=== PATIENT | male | born 1960 | race Caucasian/White ===

== ENCOUNTER 2021-10-31 12:01 | Emergency (ER) | payer MEDICARE, OTHER ==
[2021-10-31 12:52] LABS: #Eosinphils 0.2 10x3/uL (0.0-0.5); #Monocytes 0.3 10x3/uL (0.0-1.1); #Neutrophils 5.9 10x3/uL (1.5-8.4); %Basophils 0.1 % (0.0-2.0); %Eosinophils 2.5 % (0.0-6.0); %Lymphocytes 8.1 % (18.0-47.0); %Monocytes 4.7 % (0.0-10.0); %Neutrophils 83.9 % (40.0-75.0); Hemoglobin 9.5 g/dL (13.5-17.5); Mean Corpuscular HGB CONC 33.3 g/dL (32.0-36.0); Mean Corpuscular Hemoglobin 30.4 pg (27.0-33.0); Mean Corpuscular Volume 91.3 fl (81.2-95.1); Mean Platelet Volume 9.3 fl (7.4-10.4); Platelet Count 157 10x3/uL (150-450); RBC Distribution Width 13.5 % (11.5-14.5); Red Blood Cell (RBC) Count 3.12 10x6/uL (4.32-5.72); White Blood Cell (WBC) Count 7.1 10x3/uL (3.5-10.5)
[2021-10-31 13:04] LABS: ALT (SGPT) 12 U/L (8-55); AST (SGOT) 16 U/L (5-34); Albumin 3.4 g/dL (3.5-5.0); Alkaline Phosphatase 127 U/L (40-110); Anion Gap 24 mmol/L (10-20); BUN (Urea Nitrogen) 125 mg/dL (8.4-25.7); Bilirubin, Total 0.4 mg/dL (0.2-1.2); Calc. Creatinine Clearance 0 mL/min (70-130); Calcium 7.7 mg/dL (7.8-10.44); Carbon Dioxide 19 mmol/L (22-29); Chloride 95 mmol/L (98-107); Globulin 3.2 g/dL (2.4-3.5); Glucose 213 mg/dL (70-105); Potassium 4.4 mmol/L (3.5-5.1); Protein, Total 6.6 g/dL (6.0-8.3); Sodium 134 mmol/L (136-145)
[2021-10-31] MEDS ORDERED: hydrALAZINE 20 MG/ML VIAL ONE (13:34)
[2021-10-31] MEDS ORDERED: Nitroglycerin 2% Ointment 1 INCH/1 GM Packet ONE (13:34)
[2021-10-31] MEDS ORDERED: Heparin 10,000 UNITS/ 10 ML VIAL SLOW IVP PRN (16:49)
[2021-10-31] MEDS ORDERED: EPOETIN ALFA-EPBX (ESRD) 3,000 UNIT/ML VIAL IVP PRN (16:52)
== END 2021-10-31 21:15 | disposition home or self-care (01) ==
LOC: CSHERS 12:01
DX: N19 Unspecified kidney failure (principal); E87.70 Fluid overload, unspecified; E11.9 Type 2 diabetes mellitus without complications; E03.9 Hypothyroidism, unspecified; I10 Essential (primary) hypertension
CPT/HCPCS: 71045; 80053; 83880; 85025; 93005; 96374; 99285; Q5105; 90935; G0257; J0360; J1644

== ENCOUNTER 2022-02-28 08:23 | Observation (INO) | payer MEDICARE, MEDICAID ==
[2022-02-28 09:20] LABS: #Eosinphils 0.1 10x3/uL (0.0-0.5); #Monocytes 0.5 10x3/uL (0.0-1.1); #Neutrophils 9.4 10x3/uL (1.5-8.4); %Basophils 0.3 % (0.0-2.0); %Eosinophils 1.2 % (0.0-6.0); %Lymphocytes 7.8 % (18.0-47.0); %Monocytes 4.8 % (0.0-10.0); %Neutrophils 84.9 % (40.0-75.0); Hemoglobin 10.6 g/dL (13.5-17.5); Mean Corpuscular HGB CONC 31.8 g/dL (32.0-36.0); Mean Corpuscular Hemoglobin 30.4 pg (27.0-33.0); Mean Corpuscular Volume 95.4 fl (81.2-95.1); Mean Platelet Volume 9.3 fl (7.4-10.4); Platelet Count 180 10x3/uL (150-450); RBC Distribution Width 13.9 % (11.5-14.5); Red Blood Cell (RBC) Count 3.49 10x6/uL (4.32-5.72); White Blood Cell (WBC) Count 11.1 10x3/uL (3.5-10.5)
[2022-02-28 09:33] LABS: ALT (SGPT) 24 U/L (8-55); AST (SGOT) 18 U/L (5-34); Albumin 3.5 g/dL (3.5-5.0); Alkaline Phosphatase 148 U/L (40-110); Anion Gap 24 mmol/L (10-20); BUN (Urea Nitrogen) 75 mg/dL (8.4-25.7); Bilirubin, Total 0.3 mg/dL (0.2-1.2); Calc. Creatinine Clearance 0 mL/min (70-130); Carbon Dioxide 19 mmol/L (22-29); Chloride 93 mmol/L (98-107); Globulin 2.5 g/dL (2.4-3.5); Glucose 238 mg/dL (70-105); Potassium 5.1 mmol/L (3.5-5.1); Sodium 131 mmol/L (136-145)
[2022-02-28 09:52] LABS: CKMB 2.1 ng/mL (0-6.6)
[2022-02-28] MEDS ORDERED: Docusate 100 MG CAP PO PRN (10:59)
[2022-02-28] MEDS ORDERED: Promethazine 25 MG TAB PO PRN (10:59)
[2022-02-28] MEDS ORDERED: NIFEdipine XL 60 MG TAB PO SCH ×2 (11:00)
[2022-02-28] MEDS ORDERED: Dextrose 5% in Water 1,000 ML IV PRN (11:03)
[2022-02-28] MEDS ORDERED: Ondansetron PF 4 MG/2 ML Vial IVP PRN (11:03)
[2022-02-28] MEDS ORDERED: HumaLOG 300 UNITS/3 ML VIAL SC PRN (11:03)
[2022-02-28] MEDS ORDERED: Acetaminophen 325 MG TAB PO PRN (11:03)
[2022-02-28] MEDS ORDERED: Dextrose 50% Abboject 50 ML SYRINGE SLOW IVP PRN (11:03)
[2022-02-28] MEDS ORDERED: Heparin 10,000 UNITS/ 10 ML VIAL FS PRN (12:12)
[2022-02-28] MEDS ORDERED: EPOETIN ALFA-EPBX (ESRD) 3,000 UNIT/ML VIAL IVP PRN (12:13)
[2022-02-28 12:49] LABS: Troponin I 0.051 ng/mL (< 0.028)
[2022-02-28 15:15] LABS: Hep B Surf Ag Non-Reactive S/CO (NonReactive)
[2022-02-28 15:29] LABS: HBSAg Index 0.17 S/CO (0-0.99)
[2022-02-28 17:38] LABS: Troponin I 0.049 ng/mL (< 0.028)
[2022-02-28 17:42] VITALS: BMI 30.9
[2022-02-28] MEDS: Heparin 5,000 UNITS/ML VIAL SC SCH ×2 (18:00→21:29)
[2022-02-28] MEDS: cloNIDine 0.1 MG TAB PO SCH ×2 (18:00→21:27)
[2022-02-28] MEDS ORDERED: Zolpidem Tartrate 5 MG TAB PO SCH (21:00)
[2022-02-28] MEDS ORDERED: hydrALAZINE 25 MG TAB PO PRN (22:58)
[2022-02-28 23:44] LABS: Troponin I 0.048 ng/mL (< 0.028)
[2022-03-01 04:07] LABS: Anion Gap 16 mmol/L (10-20); BUN (Urea Nitrogen) 29 mg/dL (8.4-25.7); Calc. Creatinine Clearance 17 mL/min (70-130); Calcium 8.9 mg/dL (7.8-10.44); Carbon Dioxide 27 mmol/L (22-29); Chloride 96 mmol/L (98-107); Glucose 99 mg/dL (70-105); Potassium 3.7 mmol/L (3.5-5.1); Sodium 135 mmol/L (136-145)
[2022-03-01 04:08] LABS: #Eosinphils 0.2 10x3/uL (0.0-0.5); #Monocytes 0.5 10x3/uL (0.0-1.1); #Neutrophils 6.5 10x3/uL (1.5-8.4); %Basophils 0.4 % (0.0-2.0); %Eosinophils 2.2 % (0.0-6.0); %Lymphocytes 13.8 % (18.0-47.0); %Monocytes 5.7 % (0.0-10.0); %Neutrophils 76.8 % (40.0-75.0); Mean Corpuscular HGB CONC 33.9 g/dL (32.0-36.0); Mean Corpuscular Hemoglobin 30.9 pg (27.0-33.0); Mean Platelet Volume 9.3 fl (7.4-10.4); Platelet Count 188 10x3/uL (150-450); RBC Distribution Width 14.1 % (11.5-14.5); Red Blood Cell (RBC) Count 3.24 10x6/uL (4.32-5.72); White Blood Cell (WBC) Count 8.5 10x3/uL (3.5-10.5)
[2022-03-01] MEDS ORDERED: Lantus 1000 UNITS/10 ML VIAL SC SCH (09:00)
[2022-03-01] MEDS ORDERED: Fluticasone Propionate Nasal Spray 16 gm Bottle NASAL SCH (09:00)
[2022-03-01] MEDS ORDERED: Loratadine 10 MG TAB PO SCH (09:00)
[2022-03-01] MEDS ORDERED: Minoxidil 2.5 MG TAB PO SCH (09:00)
[2022-03-01] MEDS: cloNIDine 0.1 MG TAB PO SCH ×2 (11:09→17:03)
[2022-03-01] MEDS: Heparin 5,000 UNITS/ML VIAL SC SCH ×2 (11:09→17:03)
[2022-03-01 13:18] VITALS: TEMP 96.3
[2022-03-01 15:59] LABS: SARS-CoV-2 PCR by NAA Not Detected (NotDetected)
[2022-03-01 17:04] VITALS: BP 174/74
== END 2022-03-01 17:00 | disposition home or self-care (01) ==
LOC: CSHERS 08:23 → INTOOBSV 11:03 → CSHTELE 11:03 → UNDOADMIN 17:17
PROVIDERS: ADMIT Internal Medicine; ATTEND Internal Medicine
DX: R00.1 Bradycardia, unspecified (principal); I12.0 Hypertensive chronic kidney disease with stage 5 chronic kidney disease or end stage renal disease; N18.6 End stage renal disease; E11.22 Type 2 diabetes mellitus with diabetic chronic kidney disease; Z79.899 Other long term (current) drug therapy; Z79.4 Long term (current) use of insulin; Z79.82 Long term (current) use of aspirin; E03.9 Hypothyroidism, unspecified; R77.8 Other specified abnormalities of plasma proteins; Z20.822 Contact with and (suspected) exposure to COVID-19
CPT/HCPCS: 71045; 80048; 80053; 82553; 82962 ×2; 84484 ×2; 85025 ×2; 87340; 93005; 93306; 99285; G0378 ×3; Q5105; U0003; U0005; 36415; 36416; 90935; G0257; J1644; J1815

== ENCOUNTER 2022-05-19 07:32 | Emergency (ER) | payer MEDICARE, OTHER ==
[2022-05-19] MEDS ORDERED: Acetaminophen 500 MG TAB ONE (08:17)
[2022-05-19] MEDS ORDERED: traMADol HCl 50 MG TAB ONE (08:18)
== END 2022-05-19 09:34 | disposition home or self-care (01) ==
LOC: CSHERS 07:32
DX: S70.01XA Contusion of right hip, initial encounter (principal); E03.9 Hypothyroidism, unspecified; I12.0 Hypertensive chronic kidney disease with stage 5 chronic kidney disease or end stage renal disease; N18.6 End stage renal disease; E11.22 Type 2 diabetes mellitus with diabetic chronic kidney disease; Z99.2 Dependence on renal dialysis; W19.XXXA Unspecified fall, initial encounter
CPT/HCPCS: 72170

== ENCOUNTER 2022-10-19 09:05 | Inpatient (IN) | payer MEDICARE, OTHER ==
[2022-10-19] MEDS ORDERED: Prochlorperazine 10 MG/2 ML VIAL ONE ×2 (09:29→10:13)
[2022-10-19 09:39] LABS: #Eosinphils 0.3 10x3/uL (0.0-0.5); #Monocytes 0.8 10x3/uL (0.0-1.1); #Neutrophils 11.2 10x3/uL (1.5-8.4); %Basophils 0.3 % (0.0-2.0); %Eosinophils 2.1 % (0.0-6.0); %Lymphocytes 9.1 % (18.0-47.0); %Monocytes 5.5 % (0.0-10.0); %Neutrophils 82.6 % (40.0-75.0); Hemoglobin 10.6 g/dL (13.5-17.5); Mean Corpuscular HGB CONC 33.5 g/dL (32.0-36.0); Mean Corpuscular Hemoglobin 30.5 pg (27.0-33.0); Mean Corpuscular Volume 91.1 fl (81.2-95.1); Mean Platelet Volume 9.4 fl (7.4-10.4); Platelet Count 223 10x3/uL (150-450); RBC Distribution Width 13.2 % (11.5-14.5); Red Blood Cell (RBC) Count 3.47 10x6/uL (4.32-5.72); White Blood Cell (WBC) Count 13.6 10x3/uL (3.5-10.5)
[2022-10-19 09:52] LABS: ALT (SGPT) 16 U/L (8-55); AST (SGOT) 20 U/L (5-34); Albumin 3.8 g/dL (3.5-5.0); Alkaline Phosphatase 135 U/L (40-110); Anion Gap 24 mmol/L (10-20); BUN (Urea Nitrogen) 57 mg/dL (8.4-25.7); Bilirubin, Total 0.4 mg/dL (0.2-1.2); Calc. Creatinine Clearance 0 mL/min (70-130); Calcium 8.7 mg/dL (7.8-10.44); Carbon Dioxide 18 mmol/L (22-29); Chloride 92 mmol/L (98-107); Estimated GFR 6; Globulin 2.7 g/dL (2.4-3.5); Glucose 226 mg/dL (70-105); Magnesium 2.2 mg/dL (1.6-2.6); Potassium 4.8 mmol/L (3.5-5.1); Protein, Total 6.5 g/dL (6.0-8.3); Sodium 129 mmol/L (136-145)
[2022-10-19] MEDS ORDERED: Calcium Gluconate 13.8 MEQ, Admixture Fee 1 EACH in Sodium Chloride 0.9% 100 ML IVPB SCH (10:00)
[2022-10-19 10:13] LABS: CKMB 3.2 ng/mL (0-6.6)
[2022-10-19] MEDS ORDERED: Aspirin Chewable 81 MG TAB ONE (10:13)
[2022-10-19 10:14] LABS: SARS-CoV-2 NAA Rapid Test Not Detected (NotDetected)
[2022-10-19] MEDS ORDERED: Vancomycin 1 GM VIAL ONE (10:14)
[2022-10-19] MEDS ORDERED: Cefepime 2 GM VIAL ONE (10:14)
[2022-10-19] MEDS ORDERED: NOREPINEPHRINE 8 MG/250 ML-D5W 250 ML ONE (10:44)
[2022-10-19 10:58] LABS: INR-International Normal Ratio 0.9; PTT 28.8 sec (22.0-33.0); Prothrombin Time 10.3 sec (9.5-12.1)
[2022-10-19] MEDS ORDERED: Ondansetron PF 4 MG/2 ML Vial IVP PRN (11:25)
[2022-10-19] MEDS ORDERED: HYDROcodone/Acetaminophen 5/325 mg Tablet PO PRN (11:25)
[2022-10-19] MEDS ORDERED: Dextrose 5% in Water 1,000 ML IV PRN (11:28)
[2022-10-19] MEDS ORDERED: Dextrose 50% Abboject 50 ML SYRINGE SLOW IVP PRN (11:28)
[2022-10-19] MEDS ORDERED: Vancomycin Sliding Scale IVPB PRN (11:38)
[2022-10-19 12:47] LABS: Lactic Acid 2.1 mmol/L (0.5-2.2)
[2022-10-19 12:58] LABS: Troponin I 0.529 ng/mL (< 0.028)
[2022-10-19 13:05] LABS: ALV-art Gradient 76.235 mmHg (0-20); Actual Bicarbonate (HCO3a) 22.1 mEq/L (22-28); Base Excess (BEa) -3.2 mEq/L (-2.0 to +3.0); CO2 Tension 40.9 mmHg (35.0-45.0); Calcium, Ionized (arterial) 1.08 mmol/L (1.12-1.30); Carboxyhemoglobin (COHb) 0.1 gm% (0.0-3.0); Hemoglobin (Hb) 10.3 g/dL (14.0-18.0); O2 Tension (PaO2), arterial 100.8 mmHg (> 80.0); Puncture Site RRA; pH, Arterial 7.35 (7.35-7.45)
[2022-10-19 15:51] LABS: Troponin I 1.062 ng/mL (< 0.028)
[2022-10-19 15:59] LABS: HBSAg Index 0.18 S/CO (0-0.99); Hep B Surf Ag Non-Reactive S/CO (NonReactive)
[2022-10-19] MEDS: Metoclopramide HCl 10 MG/2 ML VIAL IVP SCH ×3 (16:41→21:58)
[2022-10-19] MEDS: Heparin 5,000 UNITS/ML VIAL SC SCH ×2 (17:05→21:58)
[2022-10-19] MEDS: HumaLOG 300 UNITS/3 ML VIAL SC PRN (17:53)
[2022-10-19] MEDS ORDERED: Vancomycin 1 GM in Premix Bag 1 BAG IVPB SCH (21:00)
[2022-10-19] MEDS: Heparin 10,000 UNITS/ 10 ML VIAL FS PRN (22:10)
[2022-10-19 22:44] LABS: Hep B Core Total Ab Non-Reactive (NonReactive); Hep B Core Total Index 0.07 S/CO (0-0.79); Hep C IgG Ab Non-Reactive (NonReactive); Hep C Index 0.14 S/CO (0-0.79)
[2022-10-19 23:31] LABS: HBSAB Concentration 9.11 mIU/mL
[2022-10-20] MEDS ORDERED: Vancomycin HCl 1 GM in Sodium Chloride 0.9% 250 ML 250 ML IVPB SCH (01:00)
[2022-10-20] MEDS: Metoprolol Tartrate 25 MG TAB PO SCH ×3 (01:25→20:34)
[2022-10-20 04:26] LABS: #Eosinphils 0.1 10x3/uL (0.0-0.5); #Monocytes 0.5 10x3/uL (0.0-1.1); #Neutrophils 6.3 10x3/uL (1.5-8.4); %Basophils 0.5 % (0.0-2.0); %Eosinophils 1.7 % (0.0-6.0); %Lymphocytes 8.9 % (18.0-47.0); %Monocytes 6.2 % (0.0-10.0); %Neutrophils 82.2 % (40.0-75.0); Hemoglobin 9.2 g/dL (13.5-17.5); Mean Corpuscular HGB CONC 33.8 g/dL (32.0-36.0); Mean Corpuscular Hemoglobin 30.6 pg (27.0-33.0); Mean Corpuscular Volume 90.4 fl (81.2-95.1); Mean Platelet Volume 9.3 fl (7.4-10.4); Platelet Count 182 10x3/uL (150-450); RBC Distribution Width 13.2 % (11.5-14.5); Red Blood Cell (RBC) Count 3.01 10x6/uL (4.32-5.72); White Blood Cell (WBC) Count 7.7 10x3/uL (3.5-10.5)
[2022-10-20 04:52] LABS: Anion Gap 13 mmol/L (10-20); BUN (Urea Nitrogen) 19 mg/dL (8.4-25.7); Calc. Creatinine Clearance 25 mL/min (70-130); Calcium 8.5 mg/dL (7.8-10.44); Carbon Dioxide 28 mmol/L (22-29); Chloride 99 mmol/L (98-107); Estimated GFR 15; Glucose 83 mg/dL (70-105); Potassium 3.6 mmol/L (3.5-5.1); Sodium 136 mmol/L (136-145)
[2022-10-20] MEDS: Aspirin 81 mg Enteric Coated Tablet PO SCH (07:58)
[2022-10-20] MEDS: Metoclopramide HCl 10 MG/2 ML VIAL IVP SCH ×4 (07:58→20:38)
[2022-10-20] MEDS: Heparin 5,000 UNITS/ML VIAL SC SCH ×3 (07:58→20:33)
[2022-10-20] MEDS ORDERED: Cefepime 0.5 GM, Admixture Fee 1 EACH in Sodium Chloride 0.9% 100 ML IVPB SCH (10:00)
[2022-10-20 13:01] LABS: Hemoglobin A1c 7.2 % (4.0-6.0)
[2022-10-20] MEDS ORDERED: Calcium Carbonate 500 MG ChewTAB PO PRN (14:54)
[2022-10-20] MEDS ORDERED: Artificial Tear Sol 15 ML BOT EA EYE PRN (14:54)
[2022-10-20] MEDS: Sevelamer Carbonate 800 MG TAB PO SCH (16:57)
[2022-10-20] MEDS: Lanthanum Carbonate 500 mg Chewable Tablet PO SCH (17:06)
[2022-10-20] MEDS: Gabapentin 300 MG CAP PO SCH (20:34)
[2022-10-20] MEDS: Losartan Potassium 50 MG TAB PO SCH (20:34)
[2022-10-20] MEDS: HumaLOG 300 UNITS/3 ML VIAL SC PRN (20:34)
[2022-10-20] MEDS: Lantus 1000 UNITS/10 ML VIAL SC SCH (20:37)
[2022-10-21 05:13] LABS: ALT (SGPT) 15 U/L (8-55); AST (SGOT) 19 U/L (5-34); Albumin 3.4 g/dL (3.5-5.0); Alkaline Phosphatase 96 U/L (40-110); Anion Gap 16 mmol/L (10-20); BUN (Urea Nitrogen) 30 mg/dL (8.4-25.7); Bilirubin, Total 0.5 mg/dL (0.2-1.2); Calc. Creatinine Clearance 17 mL/min (70-130); Calcium 8.4 mg/dL (7.8-10.44); Carbon Dioxide 25 mmol/L (22-29); Chloride 100 mmol/L (98-107); Estimated GFR 9; Globulin 2.6 g/dL (2.4-3.5); Glucose 80 mg/dL (70-105); Potassium 4.4 mmol/L (3.5-5.1); Sodium 137 mmol/L (136-145)
[2022-10-21 05:30] LABS: #Eosinphils 0.2 10x3/uL (0.0-0.5); #Monocytes 0.5 10x3/uL (0.0-1.1); #Neutrophils 6.3 10x3/uL (1.5-8.4); %Basophils 0.3 % (0.0-2.0); %Eosinophils 1.9 % (0.0-6.0); %Lymphocytes 9.7 % (18.0-47.0); %Monocytes 5.8 % (0.0-10.0); %Neutrophils 82.2 % (40.0-75.0); Hemoglobin 8.8 g/dL (13.5-17.5); Mean Corpuscular HGB CONC 33.2 g/dL (32.0-36.0); Mean Corpuscular Hemoglobin 30.6 pg (27.0-33.0); Mean Platelet Volume 9.6 fl (7.4-10.4); Platelet Count 179 10x3/uL (150-450); RBC Distribution Width 13.4 % (11.5-14.5); Red Blood Cell (RBC) Count 2.88 10x6/uL (4.32-5.72); White Blood Cell (WBC) Count 7.7 10x3/uL (3.5-10.5)
[2022-10-21] MEDS: Loratadine 10 MG TAB PO SCH (08:09)
[2022-10-21] MEDS: Losartan Potassium 50 MG TAB PO SCH ×2 (08:09→21:04)
[2022-10-21] MEDS: Metoprolol Tartrate 25 MG TAB PO SCH ×2 (08:09→21:07)
[2022-10-21] MEDS: Sertraline 100 MG TAB PO SCH (08:09)
[2022-10-21] MEDS: Aspirin 81 mg Enteric Coated Tablet PO SCH (08:10)
[2022-10-21] MEDS: Metoclopramide HCl 10 MG/2 ML VIAL IVP SCH ×4 (08:10→21:07)
[2022-10-21] MEDS: Sevelamer Carbonate 800 MG TAB PO SCH ×3 (08:10→17:03)
[2022-10-21 08:25] LABS: Vancomycin, Random 18.5 ug/mL (See Comment)
[2022-10-21] MEDS: Lantus 1000 UNITS/10 ML VIAL SC SCH ×2 (09:06→21:07)
[2022-10-21] MEDS: Heparin 5,000 UNITS/ML VIAL SC SCH ×3 (09:06→21:06)
[2022-10-21] MEDS: Lanthanum Carbonate 500 mg Chewable Tablet PO SCH ×3 (09:12→17:03)
[2022-10-21] MEDS: Folic Acid/Vit B Comp W-C PO SCH (09:13)
[2022-10-21] MEDS ORDERED: Cefepime 0.5 GM, Admixture Fee 1 EACH in Sodium Chloride 0.9% 100 ML IVPB SCH (15:00)
[2022-10-21] MEDS ORDERED: Vancomycin HCl 500 MG in Sodium Chloride 0.9% 100 ML IVPB SCH (17:00)
[2022-10-21] MEDS: Gabapentin 300 MG CAP PO SCH (21:04)
[2022-10-21] MEDS: HumaLOG 300 UNITS/3 ML VIAL SC PRN (21:05)
[2022-10-22 04:28] LABS: #Eosinphils 0.2 10x3/uL (0.0-0.5); #Monocytes 0.5 10x3/uL (0.0-1.1); #Neutrophils 4.9 10x3/uL (1.5-8.4); %Basophils 0.5 % (0.0-2.0); %Eosinophils 2.9 % (0.0-6.0); %Lymphocytes 13.8 % (18.0-47.0); %Monocytes 7.1 % (0.0-10.0); %Neutrophils 75.2 % (40.0-75.0); Hemoglobin 8.4 g/dL (13.5-17.5); Mean Corpuscular HGB CONC 32.8 g/dL (32.0-36.0); Mean Corpuscular Hemoglobin 29.9 pg (27.0-33.0); Mean Corpuscular Volume 91.1 fl (81.2-95.1); Mean Platelet Volume 9.9 fl (7.4-10.4); Platelet Count 176 10x3/uL (150-450); RBC Distribution Width 13.2 % (11.5-14.5); Red Blood Cell (RBC) Count 2.81 10x6/uL (4.32-5.72); White Blood Cell (WBC) Count 6.5 10x3/uL (3.5-10.5)
[2022-10-22 04:41] LABS: Anion Gap 15 mmol/L (10-20); BUN (Urea Nitrogen) 39 mg/dL (8.4-25.7); Calc. Creatinine Clearance 13 mL/min (70-130); Calcium 8.4 mg/dL (7.8-10.44); Carbon Dioxide 23 mmol/L (22-29); Chloride 99 mmol/L (98-107); Estimated GFR 7; Glucose 128 mg/dL (70-105); Potassium 4.3 mmol/L (3.5-5.1); Sodium 133 mmol/L (136-145)
[2022-10-22] MEDS ORDERED: Iron Sucrose Complex 200 MG in Sodium Chloride 0.9% 100 ML IVPB SCH (07:00)
[2022-10-22 07:39] LABS: Vancomycin, Random 17.2 ug/mL (See Comment)
[2022-10-22] MEDS: Metoclopramide HCl 10 MG/2 ML VIAL IVP SCH (07:46)
[2022-10-22] MEDS ORDERED: Minoxidil 10 MG TAB PO SCH (09:00)
[2022-10-22] MEDS ORDERED: Iron, Sodium Ferric Gluconate 250 MG in Sodium Chloride 0.9% 250 ML 250 ML IVPB SCH (09:00)
[2022-10-22] MEDS ORDERED: EPOETIN ALFA-EPBX (ESRD) 10,000 UNIT/ML VIAL SC SCH (09:00)
[2022-10-22] MEDS ORDERED: Minoxidil 2.5 MG TAB PO SCH (09:00)
[2022-10-22] MEDS: Sevelamer Carbonate 800 MG TAB PO SCH ×3 (09:26→17:33)
[2022-10-22] MEDS: Folic Acid/Vit B Comp W-C PO SCH (09:26)
[2022-10-22] MEDS: Lanthanum Carbonate 500 mg Chewable Tablet PO SCH ×3 (09:26→17:33)
[2022-10-22] MEDS: Metoprolol Tartrate 25 MG TAB PO SCH ×2 (09:27→22:17)
[2022-10-22] MEDS: Sertraline 100 MG TAB PO SCH (09:27)
[2022-10-22] MEDS: Loratadine 10 MG TAB PO SCH (09:27)
[2022-10-22] MEDS: Losartan Potassium 50 MG TAB PO SCH ×2 (09:27→22:17)
[2022-10-22] MEDS: Aspirin 81 mg Enteric Coated Tablet PO SCH (09:27)
[2022-10-22] MEDS: Saccharomyces boulardii 250 MG CAP PO SCH (09:29)
[2022-10-22] MEDS ORDERED: Amoxicillin/Potassium Clav 500 MG TAB PO SCH ×2 (10:00→15:00)
[2022-10-22] MEDS: Lantus 1000 UNITS/10 ML VIAL SC SCH (17:34)
[2022-10-22] MEDS: Heparin 5,000 UNITS/ML VIAL SC SCH (17:34)
[2022-10-22] MEDS: Gabapentin 300 MG CAP PO SCH (22:16)
[2022-10-23 05:59] LABS: #Eosinphils 0.2 10x3/uL (0.0-0.5); #Monocytes 0.5 10x3/uL (0.0-1.1); #Neutrophils 6.5 10x3/uL (1.5-8.4); %Basophils 0.3 % (0.0-2.0); %Eosinophils 2.4 % (0.0-6.0); %Lymphocytes 7.9 % (18.0-47.0); %Monocytes 5.8 % (0.0-10.0); %Neutrophils 83.2 % (40.0-75.0); Hemoglobin 9.5 g/dL (13.5-17.5); Mean Corpuscular HGB CONC 33.6 g/dL (32.0-36.0); Mean Corpuscular Hemoglobin 30.4 pg (27.0-33.0); Mean Corpuscular Volume 90.7 fl (81.2-95.1); Mean Platelet Volume 9.9 fl (7.4-10.4); Platelet Count 181 10x3/uL (150-450); RBC Distribution Width 13.2 % (11.5-14.5); Red Blood Cell (RBC) Count 3.12 10x6/uL (4.32-5.72); White Blood Cell (WBC) Count 7.8 10x3/uL (3.5-10.5)
[2022-10-23 06:05] LABS: Anion Gap 19 mmol/L (10-20); BUN (Urea Nitrogen) 50 mg/dL (8.4-25.7); Calc. Creatinine Clearance 11 mL/min (70-130); Calcium 8.4 mg/dL (7.8-10.44); Carbon Dioxide 20 mmol/L (22-29); Chloride 99 mmol/L (98-107); Estimated GFR 5; Glucose 133 mg/dL (70-105); Potassium 5.4 mmol/L (3.5-5.1); Sodium 133 mmol/L (136-145)
[2022-10-23] MEDS: Sertraline 100 MG TAB PO SCH (08:48)
[2022-10-23] MEDS: Sevelamer Carbonate 800 MG TAB PO SCH ×3 (08:48→17:12)
[2022-10-23] MEDS: Metoprolol Tartrate 25 MG TAB PO SCH ×2 (08:48→20:13)
[2022-10-23] MEDS: Aspirin 81 mg Enteric Coated Tablet PO SCH (08:48)
[2022-10-23] MEDS: Losartan Potassium 50 MG TAB PO SCH (08:48)
[2022-10-23] MEDS: Saccharomyces boulardii 250 MG CAP PO SCH (08:49)
[2022-10-23] MEDS: Lanthanum Carbonate 500 mg Chewable Tablet PO SCH ×3 (08:49→17:12)
[2022-10-23] MEDS: Loratadine 10 MG TAB PO SCH (08:49)
[2022-10-23] MEDS: Folic Acid/Vit B Comp W-C PO SCH (08:49)
[2022-10-23] MEDS ORDERED: Minoxidil 10 MG TAB PO SCH (09:00)
[2022-10-23] MEDS ORDERED: Minoxidil 2.5 MG TAB PO SCH (09:00)
[2022-10-23] MEDS ORDERED: Amoxicillin/Potassium Clav 500 MG TAB PO SCH ×2 (09:00→15:00)
[2022-10-23] MEDS ORDERED: Dextrose 50% Abboject 50 ML SYRINGE SLOW IVP STA (09:00)
[2022-10-23] MEDS ORDERED: Insulin Regular 300 UNITS/3 ML VIAL IVP SCH (09:15)
[2022-10-23] MEDS ORDERED: LOKELMA 10 GM PACKET PO STA (11:33)
[2022-10-23 15:04] LABS: Anion Gap 24 mmol/L (10-20); BUN (Urea Nitrogen) 55 mg/dL (8.4-25.7); Calc. Creatinine Clearance 10 mL/min (70-130); Calcium 8.8 mg/dL (7.8-10.44); Carbon Dioxide 17 mmol/L (22-29); Chloride 97 mmol/L (98-107); Estimated GFR 5; Glucose 202 mg/dL (70-105); Potassium 5.2 mmol/L (3.5-5.1); Sodium 133 mmol/L (136-145)
[2022-10-23] MEDS: Gabapentin 300 MG CAP PO SCH (20:13)
[2022-10-24 05:52] LABS: #Eosinphils 0.1 10x3/uL (0.0-0.5); #Monocytes 0.5 10x3/uL (0.0-1.1); #Neutrophils 6.1 10x3/uL (1.5-8.4); %Basophils 0.4 % (0.0-2.0); %Eosinophils 1.9 % (0.0-6.0); %Lymphocytes 10.7 % (18.0-47.0); %Monocytes 6.2 % (0.0-10.0); %Neutrophils 80.4 % (40.0-75.0); Hemoglobin 8.8 g/dL (13.5-17.5); Mean Corpuscular HGB CONC 33.6 g/dL (32.0-36.0); Mean Corpuscular Hemoglobin 30.8 pg (27.0-33.0); Mean Corpuscular Volume 91.6 fl (81.2-95.1); Platelet Count 178 10x3/uL (150-450); RBC Distribution Width 13.4 % (11.5-14.5); Red Blood Cell (RBC) Count 2.86 10x6/uL (4.32-5.72); White Blood Cell (WBC) Count 7.5 10x3/uL (3.5-10.5)
[2022-10-24 06:39] LABS: Anion Gap 23 mmol/L (10-20); BUN (Urea Nitrogen) 62 mg/dL (8.4-25.7); Calc. Creatinine Clearance 9 mL/min (70-130); Calcium 8.5 mg/dL (7.8-10.44); Carbon Dioxide 20 mmol/L (23-31); Chloride 99 mmol/L (98-107); Estimated GFR 4; Glucose 122 mg/dL (80-115); Potassium 4.9 mmol/L (3.5-5.1); Sodium 137 mmol/L (136-145)
[2022-10-24] MEDS ORDERED: EPINEPHrine 1 MG/ML AMP ONE (08:00)
[2022-10-24] MEDS ORDERED: Bupivacaine 0.25% HCL 30 ML VIAL ONE (08:00)
[2022-10-24] MEDS: Loratadine 10 MG TAB PO SCH (08:46)
[2022-10-24] MEDS: Sevelamer Carbonate 800 MG TAB PO SCH ×3 (08:46→17:25)
[2022-10-24] MEDS: Aspirin 81 mg Enteric Coated Tablet PO SCH (08:46)
[2022-10-24] MEDS: Lanthanum Carbonate 500 mg Chewable Tablet PO SCH ×3 (08:46→17:25)
[2022-10-24] MEDS: Folic Acid/Vit B Comp W-C PO SCH (08:46)
[2022-10-24] MEDS: Saccharomyces boulardii 250 MG CAP PO SCH (08:46)
[2022-10-24] MEDS: Sertraline 100 MG TAB PO SCH (08:55)
[2022-10-24] MEDS: Metoprolol Tartrate 25 MG TAB PO SCH ×2 (08:55→21:32)
[2022-10-24] MEDS ORDERED: PROPOFOL 20 ML ONE (10:12)
[2022-10-24] MEDS ORDERED: Fentanyl 100 MCG/2 ML VIAL ONE (10:12)
[2022-10-24] MEDS ORDERED: Midazolam HCl 2 mg/2 ml Vial ONE (10:12)
[2022-10-24] MEDS ORDERED: Lidocaine 1% PF 5 ML VIAL ONE (10:13)
[2022-10-24] MEDS ORDERED: Glycopyrrolate 0.2 MG/ML 5 ML SYRINGE ONE (10:13)
[2022-10-24] MEDS ORDERED: Ondansetron PF 4 MG/2 ML Vial ONE (10:13)
[2022-10-24] MEDS ORDERED: ePHEDrine Sulfate 50 MG/10 ML VIAL ONE (11:24)
[2022-10-24] MEDS ORDERED: PHENYLEPHRINE-NS 100 MCG/ML 10 ML SYRINGE ONE (11:26)
[2022-10-24] MEDS ORDERED: EPINEPHrine 1 MG/10 ML Abboject SYRINGE ONE (11:32)
[2022-10-24] MEDS ORDERED: Propofol 1,000 MG/100 ML VIAL IV ONE (12:31)
[2022-10-24] MEDS ORDERED: Morphine 2 MG/ML VIAL SLOW IVP PRN (13:00)
[2022-10-24] MEDS ORDERED: Propofol BOLUS 1,000 MG/100 ML VIAL IV PRN (13:00)
[2022-10-24] MEDS ORDERED: Fentanyl BOLUS 250 ML IVPB PRN (13:00)
[2022-10-24] MEDS ORDERED: DISCONTINUE PREVIOUS NARCOTIC PAIN MEDICATIONS AND BENZODIAZEPINES FS SCH (13:00)
[2022-10-24] MEDS: FENTANYL 2,000MCG/100-0.9%NACL 100 ML IVPB SCH (13:46)
[2022-10-24 15:31] LABS: #Eosinphils 0.2 10x3/uL (0.0-0.5); #Monocytes 0.7 10x3/uL (0.0-1.1); %Basophils 0.3 % (0.0-2.0); %Eosinophils 1.4 % (0.0-6.0); %Lymphocytes 29.9 % (18.0-47.0); %Monocytes 5.8 % (0.0-10.0); %Neutrophils 60.6 % (40.0-75.0); Hemoglobin 9.3 g/dL (13.5-17.5); Mean Corpuscular HGB CONC 32.1 g/dL (32.0-36.0); Mean Corpuscular Hemoglobin 31.2 pg (27.0-33.0); Mean Corpuscular Volume 97.3 fl (81.2-95.1); Mean Platelet Volume 10.7 fl (7.4-10.4); Platelet Count 188 10x3/uL (150-450); RBC Distribution Width 13.6 % (11.5-14.5); Red Blood Cell (RBC) Count 2.98 10x6/uL (4.32-5.72); White Blood Cell (WBC) Count 11.5 10x3/uL (3.5-10.5)
[2022-10-24 15:37] LABS: Anion Gap 27 mmol/L (10-20); BUN (Urea Nitrogen) 63 mg/dL (8.4-25.7); Calc. Creatinine Clearance 8 mL/min (70-130); Calcium 8.8 mg/dL (7.8-10.44); Carbon Dioxide 16 mmol/L (23-31); Chloride 99 mmol/L (98-107); Estimated GFR 4; Glucose 207 mg/dL (80-115); Potassium 5.3 mmol/L (3.5-5.1); Sodium 137 mmol/L (136-145)
[2022-10-24 16:14] LABS: Actual Bicarbonate (HCO3a) 19.8 mEq/L (22-28); Base Excess (BEa) -6.1 mEq/L (-2.0 to +3.0); CO2 Tension 40.9 mmHg (35.0-45.0); Calcium, Ionized (arterial) 1.03 mmol/L (1.12-1.30); Carboxyhemoglobin (COHb) 0.1 gm% (0.0-3.0); Hemoglobin (Hb) 9.1 g/dL (14.0-18.0); O2 Tension (PaO2), arterial 199.8 mmHg (> 80.0); Puncture Site RBA
[2022-10-24 16:18] LABS: ALV-art Gradient 105.575 mmHg (0-20)
[2022-10-24] MEDS ORDERED: Albumin 25% 100 ML ONE (16:36)
[2022-10-24] MEDS: Heparin 10,000 UNITS/ 10 ML VIAL FS PRN (16:40)
[2022-10-24] MEDS: Albumin 25% 25 GM/100 ML BOT IVPB PRN ×2 (16:40→17:45)
[2022-10-24] MEDS ORDERED: NOREPINEPHRINE 8 MG/250 ML-D5W 250 ML ONE (17:15)
[2022-10-24] MEDS ORDERED: NOREPINEPHRINE 8 MG/250 ML-D5W 250 ML IVPB SCH (17:30)
[2022-10-24] MEDS: Lorazepam 2 MG/ML VIAL SLOW IVP PRN ×2 (19:08→20:35)
[2022-10-24 19:46] LABS: #Monocytes 0.5 10x3/uL (0.0-1.1); #Neutrophils 8.9 10x3/uL (1.5-8.4); %Basophils 0.3 % (0.0-2.0); %Eosinophils 0.3 % (0.0-6.0); %Monocytes 5.4 % (0.0-10.0); %Neutrophils 90.3 % (40.0-75.0); Mean Corpuscular HGB CONC 33.3 g/dL (32.0-36.0); Mean Corpuscular Hemoglobin 30.7 pg (27.0-33.0); Mean Platelet Volume 9.7 fl (7.4-10.4); Platelet Count 176 10x3/uL (150-450); RBC Distribution Width 13.7 % (11.5-14.5); Red Blood Cell (RBC) Count 2.61 10x6/uL (4.32-5.72); White Blood Cell (WBC) Count 9.8 10x3/uL (3.5-10.5)
[2022-10-24 20:00] LABS: Phosphorus 4.2 mg/dL (2.3-4.7)
[2022-10-24 20:05] LABS: ALT (SGPT) 41 U/L (8-55); AST (SGOT) 34 U/L (5-34); Albumin 4.1 g/dL (3.4-4.8); Alkaline Phosphatase 107 U/L (40-110); Anion Gap 21 mmol/L (10-20); BUN (Urea Nitrogen) 28 mg/dL (8.4-25.7); Bilirubin, Total 0.8 mg/dL (0.2-1.2); CK (CPK) 52 U/L (30-200); Calc. Creatinine Clearance 17 mL/min (70-130); Calcium 8.5 mg/dL (7.8-10.44); Carbon Dioxide 21 mmol/L (23-31); Chloride 100 mmol/L (98-107); Estimated GFR 10; Globulin 2.6 g/dL (2.4-3.5); Glucose 128 mg/dL (80-115); Magnesium 2.1 mg/dL (1.6-2.6); Potassium 3.8 mmol/L (3.5-5.1); Protein, Total 6.7 g/dL (5.8-8.1); Sodium 138 mmol/L (136-145)
[2022-10-24] MEDS ORDERED: levETIRAcetam in NS 1,000 MG in Premix Bag 1 BAG IVPB SCH (21:00)
[2022-10-24] MEDS ORDERED: levETIRAcetam 500 MG/5 ML VIAL SLOW IVP SCH (21:15)
[2022-10-24] MEDS: Gabapentin 300 MG CAP PO SCH (22:34)
[2022-10-24] MEDS: Amoxicillin/Potassium Clav 500 MG TAB PO SCH (22:45)
[2022-10-25] MEDS: Propofol 1,000 MG/100 ML VIAL IV PRN ×2 (00:14→12:02)
[2022-10-25 05:00] LABS: Anion Gap 23 mmol/L (10-20); BUN (Urea Nitrogen) 28 mg/dL (8.4-25.7); CK (CPK) 32 U/L (30-200); Calc. Creatinine Clearance 15 mL/min (70-130); Carbon Dioxide 19 mmol/L (23-31); Chloride 100 mmol/L (98-107); Estimated GFR 8; Glucose 105 mg/dL (80-115); Magnesium 2.2 mg/dL (1.6-2.6); Potassium 4.3 mmol/L (3.5-5.1); Sodium 138 mmol/L (136-145)
[2022-10-25 05:28] LABS: #Eosinphils 0.1 10x3/uL (0.0-0.5); #Monocytes 0.6 10x3/uL (0.0-1.1); #Neutrophils 7.3 10x3/uL (1.5-8.4); %Basophils 0.3 % (0.0-2.0); %Eosinophils 0.8 % (0.0-6.0); %Lymphocytes 7.8 % (18.0-47.0); %Monocytes 6.6 % (0.0-10.0); Hemoglobin 7.2 g/dL (13.5-17.5); Mean Corpuscular HGB CONC 33.2 g/dL (32.0-36.0); Mean Corpuscular Volume 93.5 fl (81.2-95.1); Mean Platelet Volume 10.1 fl (7.4-10.4); Platelet Count 179 10x3/uL (150-450); RBC Distribution Width 13.8 % (11.5-14.5); Red Blood Cell (RBC) Count 2.32 10x6/uL (4.32-5.72); White Blood Cell (WBC) Count 8.7 10x3/uL (3.5-10.5)
[2022-10-25] MEDS: Lorazepam 2 MG/ML VIAL SLOW IVP PRN ×2 (08:16→13:10)
[2022-10-25] MEDS: Lanthanum Carbonate 500 mg Chewable Tablet PO SCH ×3 (08:28→17:47)
[2022-10-25] MEDS: Sevelamer Carbonate 800 MG TAB PO SCH ×3 (08:28→17:47)
[2022-10-25] MEDS: FENTANYL 2,000MCG/100-0.9%NACL 100 ML IVPB SCH (09:25)
[2022-10-25] MEDS: Heparin 5,000 UNITS/ML VIAL SC SCH ×2 (09:30→21:01)
[2022-10-25] MEDS: levETIRAcetam 500 MG/5 ML VIAL SLOW IVP SCH ×3 (09:30→22:59)
[2022-10-25] MEDS: Aspirin 81 mg Enteric Coated Tablet PO SCH (09:31)
[2022-10-25] MEDS: Loratadine 10 MG TAB PO SCH (09:31)
[2022-10-25] MEDS: Saccharomyces boulardii 250 MG CAP PO SCH (09:31)
[2022-10-25] MEDS: Sertraline 100 MG TAB PO SCH (09:31)
[2022-10-25] MEDS: Losartan Potassium 50 MG TAB PO SCH ×2 (09:39→21:01)
[2022-10-25] MEDS: Metoprolol Tartrate 25 MG TAB PO SCH ×2 (09:39→21:01)
[2022-10-25] MEDS: Folic Acid/Vit B Comp W-C PO SCH (11:05)
[2022-10-25] MEDS: Gabapentin 300 MG CAP PO SCH (21:00)
[2022-10-25] MEDS: Amoxicillin/Potassium Clav 500 MG TAB PO SCH (23:49)
[2022-10-26] MEDS: Acetaminophen 325 MG TAB PO PRN ×2 (02:18→23:22)
[2022-10-26 04:36] LABS: #Eosinphils 0.2 10x3/uL (0.0-0.5); #Monocytes 0.7 10x3/uL (0.0-1.1); #Neutrophils 7.6 10x3/uL (1.5-8.4); %Basophils 0.2 % (0.0-2.0); %Eosinophils 2.2 % (0.0-6.0); %Lymphocytes 8.4 % (18.0-47.0); %Monocytes 7.7 % (0.0-10.0); %Neutrophils 81.1 % (40.0-75.0); Hemoglobin 7.3 g/dL (13.5-17.5); Mean Corpuscular Hemoglobin 30.5 pg (27.0-33.0); Mean Corpuscular Volume 95.4 fl (81.2-95.1); Platelet Count 179 10x3/uL (150-450); RBC Distribution Width 13.8 % (11.5-14.5); Red Blood Cell (RBC) Count 2.39 10x6/uL (4.32-5.72); White Blood Cell (WBC) Count 9.4 10x3/uL (3.5-10.5)
[2022-10-26 04:39] LABS: Iron 24 ug/dL (65-175); Iron Binding Capacity, Total 138 mcg/dL (261-462)
[2022-10-26 04:41] LABS: Albumin 3.4 g/dL (3.4-4.8); Anion Gap 23 mmol/L (10-20); BUN (Urea Nitrogen) 37 mg/dL (8.4-25.7); BUN/Creatinine Ratio 4.13; Calc. Creatinine Clearance 12 mL/min (70-130); Carbon Dioxide 18 mmol/L (23-31); Chloride 100 mmol/L (98-107); Estimated GFR 6; Glucose 113 mg/dL (80-115); Phosphorus 5.6 mg/dL (2.3-4.7); Potassium 4.4 mmol/L (3.5-5.1); Sodium 137 mmol/L (136-145)
[2022-10-26] MEDS: FENTANYL 2,000MCG/100-0.9%NACL 100 ML IVPB SCH (05:49)
[2022-10-26] MEDS ORDERED: EPOETIN ALFA-EPBX (ESRD) 10,000 UNIT/ML VIAL SC PRN (06:45)
[2022-10-26] MEDS: Heparin 5,000 UNITS/ML VIAL SC SCH ×2 (08:30→21:10)
[2022-10-26] MEDS: Losartan Potassium 50 MG TAB PO SCH ×2 (08:31→21:10)
[2022-10-26] MEDS: Aspirin 81 mg Enteric Coated Tablet PO SCH (08:31)
[2022-10-26] MEDS: Sertraline 100 MG TAB PO SCH (08:31)
[2022-10-26] MEDS: Metoprolol Tartrate 25 MG TAB PO SCH ×2 (08:31→21:10)
[2022-10-26] MEDS: Saccharomyces boulardii 250 MG CAP PO SCH (08:31)
[2022-10-26] MEDS: Loratadine 10 MG TAB PO SCH (08:32)
[2022-10-26] MEDS: Lanthanum Carbonate 500 mg Chewable Tablet PO SCH ×3 (08:32→17:43)
[2022-10-26] MEDS: Folic Acid/Vit B Comp W-C PO SCH (09:16)
[2022-10-26] MEDS: Sevelamer Carbonate 800 MG TAB PO SCH ×3 (09:17→17:43)
[2022-10-26] MEDS: levETIRAcetam 500 MG/5 ML VIAL SLOW IVP SCH ×2 (09:21→21:11)
[2022-10-26] MEDS: Heparin 10,000 UNITS/ 10 ML VIAL FS PRN (10:34)
[2022-10-26] MEDS: Iron, Sodium Ferric Gluconate 250 MG in Sodium Chloride 0.9% 250 ML 250 ML IVPB SCH (13:04)
[2022-10-26] MEDS: Gabapentin 300 MG CAP PO SCH (21:10)
[2022-10-26] MEDS: HumaLOG 300 UNITS/3 ML VIAL SC PRN (23:23)
[2022-10-26] MEDS: Amoxicillin/Potassium Clav 500 MG TAB PO SCH (23:24)
[2022-10-27 04:35] LABS: #Monocytes 1.1 10x3/uL (0.0-1.1); #Neutrophils 11.5 10x3/uL (1.5-8.4); %Basophils 0.2 % (0.0-2.0); %Eosinophils 0.1 % (0.0-6.0); %Lymphocytes 7.7 % (18.0-47.0); %Monocytes 7.9 % (0.0-10.0); %Neutrophils 83.3 % (40.0-75.0); Hemoglobin 8.6 g/dL (13.5-17.5); Mean Corpuscular HGB CONC 33.2 g/dL (32.0-36.0); Mean Corpuscular Volume 93.5 fl (81.2-95.1); Mean Platelet Volume 9.8 fl (7.4-10.4); Platelet Count 216 10x3/uL (150-450); RBC Distribution Width 13.7 % (11.5-14.5); Red Blood Cell (RBC) Count 2.77 10x6/uL (4.32-5.72); White Blood Cell (WBC) Count 13.8 10x3/uL (3.5-10.5)
[2022-10-27 04:46] LABS: Anion Gap 27 mmol/L (10-20); BUN (Urea Nitrogen) 25 mg/dL (8.4-25.7); Calc. Creatinine Clearance 17 mL/min (70-130); Carbon Dioxide 15 mmol/L (23-31); Chloride 101 mmol/L (98-107); Estimated GFR 10; Glucose 156 mg/dL (80-115); Potassium 5.2 mmol/L (3.5-5.1); Sodium 138 mmol/L (136-145)
[2022-10-27] MEDS: HumaLOG 300 UNITS/3 ML VIAL SC PRN ×2 (05:44→16:39)
[2022-10-27] MEDS ORDERED: LOKELMA 10 GM PACKET PO SCH (08:00)
[2022-10-27] MEDS: Lanthanum Carbonate 500 mg Chewable Tablet PO SCH ×3 (08:50→17:17)
[2022-10-27] MEDS: Sevelamer Carbonate 800 MG TAB PO SCH ×3 (08:50→17:17)
[2022-10-27] MEDS: Sertraline 100 MG TAB PO SCH (09:06)
[2022-10-27] MEDS: Loratadine 10 MG TAB PO SCH (09:06)
[2022-10-27] MEDS: Aspirin 81 mg Enteric Coated Tablet PO SCH (09:06)
[2022-10-27] MEDS: Losartan Potassium 50 MG TAB PO SCH ×2 (09:06→19:59)
[2022-10-27] MEDS: levETIRAcetam 500 MG/5 ML VIAL SLOW IVP SCH ×2 (09:07→19:59)
[2022-10-27] MEDS: Metoprolol Tartrate 25 MG TAB PO SCH ×2 (09:07→19:59)
[2022-10-27] MEDS: Heparin 5,000 UNITS/ML VIAL SC SCH ×2 (09:07→19:59)
[2022-10-27] MEDS: Saccharomyces boulardii 250 MG CAP PO SCH (09:08)
[2022-10-27] MEDS: Folic Acid/Vit B Comp W-C PO SCH (09:08)
[2022-10-27] MEDS: Iron, Sodium Ferric Gluconate 250 MG in Sodium Chloride 0.9% 250 ML 250 ML IVPB SCH (13:30)
[2022-10-27] MEDS: Gabapentin 300 MG CAP PO SCH (19:59)
[2022-10-28] MEDS: Amoxicillin/Potassium Clav 500 MG TAB PO SCH ×2 (00:07→22:40)
[2022-10-28] MEDS: HumaLOG 300 UNITS/3 ML VIAL SC PRN ×5 (00:24→21:15)
[2022-10-28 05:01] LABS: Anion Gap 19 mmol/L (10-20); BUN (Urea Nitrogen) 38 mg/dL (8.4-25.7); Calc. Creatinine Clearance 12 mL/min (70-130); Calcium 8.8 mg/dL (7.8-10.44); Carbon Dioxide 22 mmol/L (23-31); Chloride 100 mmol/L (98-107); Estimated GFR 6; Glucose 215 mg/dL (80-115); Potassium 3.8 mmol/L (3.5-5.1); Sodium 137 mmol/L (136-145)
[2022-10-28 05:14] LABS: #Eosinphils 0.1 10x3/uL (0.0-0.5); #Monocytes 0.7 10x3/uL (0.0-1.1); #Neutrophils 9.1 10x3/uL (1.5-8.4); %Basophils 0.2 % (0.0-2.0); %Eosinophils 1.3 % (0.0-6.0); %Lymphocytes 6.3 % (18.0-47.0); %Monocytes 6.9 % (0.0-10.0); %Neutrophils 84.7 % (40.0-75.0); Hemoglobin 7.9 g/dL (13.5-17.5); Mean Corpuscular HGB CONC 32.6 g/dL (32.0-36.0); Mean Corpuscular Hemoglobin 30.9 pg (27.0-33.0); Mean Corpuscular Volume 94.5 fl (81.2-95.1); Mean Platelet Volume 9.9 fl (7.4-10.4); Platelet Count 225 10x3/uL (150-450); RBC Distribution Width 13.8 % (11.5-14.5); Red Blood Cell (RBC) Count 2.56 10x6/uL (4.32-5.72); White Blood Cell (WBC) Count 10.8 10x3/uL (3.5-10.5)
[2022-10-28] MEDS: Lanthanum Carbonate 500 mg Chewable Tablet PO SCH ×3 (07:54→16:58)
[2022-10-28] MEDS: Sevelamer Carbonate 800 MG TAB PO SCH ×3 (07:54→16:58)
[2022-10-28] MEDS: Heparin 5,000 UNITS/ML VIAL SC SCH ×2 (08:32→21:52)
[2022-10-28] MEDS: Losartan Potassium 50 MG TAB PO SCH ×2 (08:33→21:52)
[2022-10-28] MEDS: Aspirin 81 mg Enteric Coated Tablet PO SCH (08:33)
[2022-10-28] MEDS: Loratadine 10 MG TAB PO SCH (08:33)
[2022-10-28] MEDS: Sertraline 100 MG TAB PO SCH (08:33)
[2022-10-28] MEDS: levETIRAcetam 500 MG/5 ML VIAL SLOW IVP SCH ×2 (08:34→21:52)
[2022-10-28] MEDS: Metoprolol Tartrate 25 MG TAB PO SCH ×2 (08:34→21:52)
[2022-10-28] MEDS: Saccharomyces boulardii 250 MG CAP PO SCH (08:34)
[2022-10-28] MEDS: Folic Acid/Vit B Comp W-C PO SCH (08:34)
[2022-10-28] MEDS: Heparin 10,000 UNITS/ 10 ML VIAL FS PRN (09:56)
[2022-10-28 11:53] LABS: Thyroid Stimulating Hormone 0.2181 uIU/mL (0.35-4.94)
[2022-10-28 15:16] LABS: Base Excess (BEa) -2.9 mEq/L (-2.0 to +3.0); CO2 Tension 28.5 mmHg (35.0-45.0); Calcium, Ionized (arterial) 1.13 mmol/L (1.12-1.30); Carboxyhemoglobin (COHb) 0.3 gm% (0.0-3.0); Hemoglobin (Hb) 10.3 g/dL (14.0-18.0); O2 Tension (PaO2), arterial 163.8 mmHg (> 80.0); Potassium - ABG Lab 3.8 mmol/L (3.70-5.30); Puncture Site RBA; pH, Arterial 7.46 (7.35-7.45)
[2022-10-28 15:17] LABS: ALV-art Gradient 85.775 mmHg (0-20)
[2022-10-28] MEDS: Lorazepam 2 MG/ML VIAL SLOW IVP PRN (18:57)
[2022-10-28] MEDS: Gabapentin 300 MG CAP PO SCH (21:52)
[2022-10-29 05:00] LABS: #Eosinphils 0.2 10x3/uL (0.0-0.5); #Monocytes 0.6 10x3/uL (0.0-1.1); #Neutrophils 8.4 10x3/uL (1.5-8.4); %Basophils 0.3 % (0.0-2.0); %Eosinophils 2.4 % (0.0-6.0); %Monocytes 6.2 % (0.0-10.0); %Neutrophils 84.2 % (40.0-75.0); Hemoglobin 8.4 g/dL (13.5-17.5); Mean Corpuscular HGB CONC 32.3 g/dL (32.0-36.0); Mean Corpuscular Hemoglobin 30.8 pg (27.0-33.0); Mean Corpuscular Volume 95.2 fl (81.2-95.1); Mean Platelet Volume 9.6 fl (7.4-10.4); Platelet Count 267 10x3/uL (150-450); RBC Distribution Width 13.7 % (11.5-14.5); Red Blood Cell (RBC) Count 2.73 10x6/uL (4.32-5.72); White Blood Cell (WBC) Count 9.9 10x3/uL (3.5-10.5)
[2022-10-29 05:05] LABS: Anion Gap 19 mmol/L (10-20); BUN (Urea Nitrogen) 30 mg/dL (8.4-25.7); Calc. Creatinine Clearance 19 mL/min (70-130); Calcium 9.2 mg/dL (7.8-10.44); Carbon Dioxide 24 mmol/L (23-31); Chloride 99 mmol/L (98-107); Estimated GFR 11; Glucose 274 mg/dL (80-115); Magnesium 2.3 mg/dL (1.6-2.6); Potassium 3.8 mmol/L (3.5-5.1); Sodium 138 mmol/L (136-145)
[2022-10-29 05:19] LABS: Basophilic Stippling SLIGHT = 1-2 cells (100X) (None Seen); Platelet Morphology Comment Appears Adequate
[2022-10-29] MEDS: HumaLOG 300 UNITS/3 ML VIAL SC PRN ×3 (05:48→22:40)
[2022-10-29 06:19] VITALS: BMI 29.0
[2022-10-29] MEDS: Sevelamer Carbonate 800 MG TAB PO SCH ×3 (07:36→18:01)
[2022-10-29] MEDS: Lanthanum Carbonate 500 mg Chewable Tablet PO SCH ×3 (07:36→18:01)
[2022-10-29] MEDS: levETIRAcetam 500 MG/5 ML VIAL SLOW IVP SCH ×2 (08:02→20:25)
[2022-10-29] MEDS: Heparin 5,000 UNITS/ML VIAL SC SCH ×2 (08:04→20:25)
[2022-10-29] MEDS: Metoprolol Tartrate 25 MG TAB PO SCH ×2 (08:04→20:25)
[2022-10-29] MEDS: Sertraline 100 MG TAB PO SCH (08:04)
[2022-10-29] MEDS: Aspirin 81 mg Enteric Coated Tablet PO SCH (08:04)
[2022-10-29] MEDS: Losartan Potassium 50 MG TAB PO SCH ×2 (08:04→20:25)
[2022-10-29] MEDS: Saccharomyces boulardii 250 MG CAP PO SCH (08:05)
[2022-10-29] MEDS: Loratadine 10 MG TAB PO SCH (08:05)
[2022-10-29] MEDS: Folic Acid/Vit B Comp W-C PO SCH (08:06)
[2022-10-29] MEDS: Heparin 10,000 UNITS/ 10 ML VIAL FS PRN (09:51)
[2022-10-29] MEDS: Gabapentin 300 MG CAP PO SCH (20:25)
[2022-10-29] MEDS: Amoxicillin/Potassium Clav 500 MG TAB PO SCH (23:48)
[2022-10-30 02:57] LABS: SARS-CoV-2 NAA Rapid Test Not Detected (NotDetected)
[2022-10-30 04:13] VITALS: TEMP 97.6
[2022-10-30 04:43] VITALS: BP 134/60
== END 2022-10-30 06:15 | disposition short-term general hospital (02) | DRG 870 ==
LOC: CSHERS 09:05 → CSHIMCU 16:25 → CSHTELE 10-22 17:19 → CSHICU 10-24 12:31
PROVIDERS: ADMIT Family Medicine; ATTEND Internal Medicine
PROC: 3E03329 Introduction of Other Anti-infective into Peripheral Vein, Percutaneous Approach (ICD-10-PCS; principal; 2022-10-19)
PROC: 3E033XZ Introduction of Vasopressor into Peripheral Vein, Percutaneous Approach (ICD-10-PCS; 2022-10-19)
PROC: 5A1955Z Respiratory Ventilation, Greater than 96 Consecutive Hours (ICD-10-PCS; 2022-10-24)
PROC: 02HV33Z Insertion of Infusion Device into Superior Vena Cava, Percutaneous Approach (ICD-10-PCS; 2022-10-24)
PROC: B548ZZA Ultrasonography of Superior Vena Cava, Guidance (ICD-10-PCS; 2022-10-24)
PROC: 5A1D70Z Performance of Urinary Filtration, Intermittent, Less than 6 Hours Per Day (ICD-10-PCS; 2022-10-24)
PROC: 0BH17EZ Insertion of Endotracheal Airway into Trachea, Via Natural or Artificial Opening (ICD-10-PCS; 2022-10-24)
DX: A41.9 Sepsis, unspecified organism (principal); G93.41 Metabolic encephalopathy; J18.9 Pneumonia, unspecified organism; R65.21 Severe sepsis with septic shock; N18.6 End stage renal disease; J95.821 Acute postprocedural respiratory failure; I21.A1 Myocardial infarction type 2; I12.0 Hypertensive chronic kidney disease with stage 5 chronic kidney disease or end stage renal disease; T82.898A Other specified complication of vascular prosthetic devices, implants and grafts, initial encounter; Z66 Do not resuscitate; K94.03 Colostomy malfunction; A04.72 Enterocolitis due to Clostridium difficile, not specified as recurrent; Z20.822 Contact with and (suspected) exposure to COVID-19; E03.9 Hypothyroidism, unspecified; E11.22 Type 2 diabetes mellitus with diabetic chronic kidney disease; R79.89 Other specified abnormal findings of blood chemistry; D63.1 Anemia in chronic kidney disease; E66.9 Obesity, unspecified; F31.9 Bipolar disorder, unspecified; E87.5 Hyperkalemia; Y83.8 Other surgical procedures as the cause of abnormal reaction of the patient, or of later complication, without mention of misadventure at the time of the procedure; Z79.4 Long term (current) use of insulin; Z95.0 Presence of cardiac pacemaker; Z89.511 Acquired absence of right leg below knee; Z99.2 Dependence on renal dialysis; Z79.899 Other long term (current) drug therapy; Z79.82 Long term (current) use of aspirin; Z91.15 Patient's noncompliance with renal dialysis
CPT/HCPCS: 36415; 36416; 36600; 70450; 70551; 71045; 80048; 80053; 80069; 80202; 82010; 82550; 82553; 82607; 82728; 82805; 83036; 83540; 83550; 83605; 83690; 83735; 84100; 84145; 84443; 84484; 85025; 85610; 85730; 86140; 86704; 87040; 87149; 87324; 87449; 87493; 87811; 90935; 93005; 94002; 94003; 94760; 96365; 96375; 96376; C1751; C1752; G0257; J0171; J0610; J0692; J0780; J1642; J1644; J1815; J1953; J2060; J2250; J2405; J2704; J2765; J2916; J3010; J3370; J3490; J7050; P9047; Q5105; S0020; U0002